=== PATIENT | female | born 2000 | race African-American/Black ===

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

== ENCOUNTER 2021-02-25 11:48 | Emergency (ER) | payer MEDICAID, OTHER, SELFPAY ==
[2021-02-25 13:03] LABS: #Basophils 0.1 thou/uL (0.0-0.2); #Lymphocytes 1.2 thou/uL (1.20-3.40); #Monocytes 0.3 thou/uL (0.11-0.59); #Neutrophils 6.9 thou/uL (1.40-6.50); %Basophils 0.9 % (0.0-1.0); %Eosinophils 0.1 % (0.0-10.0); %Lymphocytes 14.3 % (28.0-48.0); %Monocytes 3.7 % (0.0-4.0); Hemoglobin 13.2 g/dL (12.0-16.0); Mean Corpuscular HGB CONC 32.9 g/dL (32.0-36.0); Mean Corpuscular Volume 97.2 fL (78.0-98.0); Platelet Count 328 thou/uL (130-400); RBC Distribution Width 11.3 % (11.5-14.5); Red Blood Cell (RBC) Count 4.11 mill/uL (4.00-5.20); White Blood Cell (WBC) Count 8.5 thou/uL (4.8-10.8)
[2021-02-25 13:11] LABS: BHCG - Serum Negative (NEGATIVE); Pregs Control Background? CLEAR/WHITE (CLR/WHITE); Pregs Control Bar Appear? YES (CONTROL BAR)
[2021-02-25 13:31] LABS: ALT (SGPT) 11 U/L (8-55); AST (SGOT) 13 U/L (5-30); Albumin 4.3 g/dL (3.5-5.0); Alkaline Phosphatase 59 U/L (40-100); Anion Gap 14 mmol/L (10-20); BUN (Urea Nitrogen) 8 mg/dL (8.4-21.0); Bilirubin, Total 0.3 mg/dL (0.2-1.2); Calc. Creatinine Clearance 0 mL/min (70-130); Calcium 9.8 mg/dL (7.8-10.44); Carbon Dioxide 20 mmol/L (22-29); Chloride 105 mmol/L (98-107); Globulin 3.5 g/dL (2.4-3.5); Glucose 101 mg/dL (70-105); Lipase 13 U/L (8-78); Potassium 3.7 mmol/L (3.5-5.1); Protein, Total 7.8 g/dL (6.0-8.3); Sodium 135 mmol/L (136-145)
[2021-02-25] MEDS ORDERED: Acetaminophen 325 MG TAB ONE (13:44)
[2021-02-25 14:24] LABS: Bilirubin Negative (Negative); Blood, Urine 2+ (Negative); Clarity Extra Turbid (Clear); Glucose, Urine (Dipstick) Normal (Negative); Ketone, Urine Negative (Negative); Leukocyte 250 Leu/uL (Negative); Nitrite Negative (Negative); Protein, Urine (Dipstick) 70 mg/dL (Neg-Trace); Specific Gravity, Urine 1.023 (1.002-1.036); Squamous Epithelial Greater than 50 HPF (0-3); Urobilinogen Normal mg/dL (Less than 2)
[2021-02-25 14:35] LABS: Bacteria/HPF 1+ HPF (None Seen)
[2021-03-01 05:32] LABS: Chlam.trachomatis by PCR,Urine Not Detected (NotDetected)
== END 2021-02-25 15:44 | disposition home or self-care (01) ==
LOC: ERS 11:48
DX: N10 Acute pyelonephritis (principal)
CPT/HCPCS: 36415; 80053; 81003; 81015; 83690; 84703; 85025; 87077; 87086; 87491; 87591; 99284

== ENCOUNTER 2022-02-26 19:06 | Emergency (ER) | payer SELFPAY | END 2022-02-26 20:30 | disposition home or self-care (01) | LOC: ERS 19:06 | DX: O99.611 Diseases of the digestive system complicating pregnancy, first trimester (principal); Z3A.19 19 weeks gestation of pregnancy | CPT/HCPCS: 99283 ==

== ENCOUNTER 2022-04-13 13:36 | Outpatient (CLI) | payer MEDICAID, OTHER, SELFPAY | END 2022-04-13 13:37 | disposition home or self-care (01) | LOC: BICULT 13:36 | PROVIDERS: ATTEND Advanced Practice Midwife | DX: Z34.92 Encounter for supervision of normal pregnancy, unspecified, second trimester (principal); Z3A.26 26 weeks gestation of pregnancy | CPT/HCPCS: 76805 ==